=== PATIENT | female | born 1965 | race Caucasian/White ===

== ENCOUNTER 2016-08-13 20:07 | Emergency (ER) | payer SELFPAY ==
[~2016-08-13] VITALS: Ht 160 cm; Wt 50.0 kg
[~2016-08-13 20:07] MED LIST: DICL75TA PO; IBUP800T23 PO
[2016-08-13 20:08] VITALS: BP 124/76; PULSE 84; RESP 16; TEMP 98; O2SAT 96
--- NOTE | 2016-08-13 20:30 | PD ---
HPI Chief Complaint: Pain: Acute or Chronic Time Seen by Provider: 20:30 Travel History International Travel<30 days: No Contact w/Intl Traveler<30days: No Traveled to known affect area: No History of Present Illness HPI 51-year-old female presents to emergency department for evaluation left wrist pain 1 year. Patient states that she went to [facility] 2 months ago and they x-rayed it and gave her a wrist splint. She has not been wearing this has it is uncomfortable. 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 She reports the pain worse after work. She denies any injury. No alterations in sensation. She has not sought follow-up since her last hospital visit for this. She has no other symptoms to report. History Past Medical Histgory Hx Cancer: Yes (OVARIAN AND RIGHT BREAST) Social History Alcohol Use: Yes (RARE) Tobacco Use: Yes (1/2PPD) Allergies-Medications (Allergen,Severity, Reaction): Coded Allergies: Aspirin (Verified Allergy, Severe, QUIT BREATHING, 08/13/16) Flu Vaccine (Verified Allergy, Severe, Anaphylaxis, 08/13/16) Sodium Hypochlorite (Verified Allergy, Severe, HIVES/ QUIT BREATHING, 08/13) Latex (Verified Allergy, Intermediate, RASH, 08/13/16) Reported Meds & Prescriptions Reported Meds & Active Scripts Active Diclofenac Sodium DR (Diclofenac Sodium) 75 Mg Tabdr 75 Mg PO Q12HR PRN Reported Ibuprofen 800 Mg Tab 800 Mg PO TID PRN Review of Systems Except as stated in HPI: all other systems reviewed are Neg Physical Exam Narrative GENERAL: Well-nourished, well-developed female patient in no acute distress SKIN: Warm and dry. HEAD: Normocephalic. EYES: No scleral icterus. No injection or drainage. NECK: Supple, trachea midline. No JVD or lymphadenopathy. CARDIOVASCULAR: Regular rate and rhythm without murmurs, gallops, or rubs. RESPIRATORY: Breath sounds equal bilaterally. No accessory muscle use. GASTROINTESTINAL: Abdomen soft, non-tender, nondistended. MUSCULOSKELETAL: No cyanosis, or edema. There is no swelling and no reported tenderness of the left wrist. There is no obvious deformity. The skin is intact. Flexion and extension of the fingers is normal. The fingers are warm and well perfused. Sensation to light touch is intact in the hand. BACK: Nontender without obvious deformity. No CVA tenderness. Data Data Last Documented VS Vital Signs Date Time Temp Pulse Resp B/P Pulse Ox O2 Delivery O2 Flow Rate FiO2 08/13/16 20:08 98.0 84 16 124/76 96 MDM Medical Screen Exam Complete: Yes Emergency Medical Condition: No Differential Diagnosis Carpal tunnel versus tendinitis versus osteoarthritis Narrative Course 51-year-old female presents to the emergency department for evaluation a left wrist pain 1 year. Patient has been evaluated for this prior and has not sought follow-up. She continues to work, not using her brace, and is left- handed. This is likely a carpal tunnel or tendinitis. I advised that she wear her brace or at least an Adam wrap but most important she needs follow-up with hand specialist. At this time there are no urgent or emergent needs for medical intervention identified. A medical screening exam was performed: At the time of evaluation the presenting medical condition was determined not to be of an emergent nature. The patient was given the option of receiving additional care, but declined. Patient was given options for additional community resources from which to obtain care. The Patient Has Been advised to seek medical attention for their presenting complaint. The patient has been advised to return to the ER at any time if an emergent condition develops. Primary Impression: Encounter for medical screening examination Additional Impression: Left wrist pain Condition: Stable Kim Huang Aug 13, 2016 20:30
== END 2016-08-13 20:39 | disposition left against medical advice (07) ==
LOC: NEPB 20:07
DX: M25.532 Pain in left wrist (principal); F17.210 Nicotine dependence, cigarettes, uncomplicated
CPT/HCPCS: 99281

== ENCOUNTER 2017-07-30 18:51 | Observation (INO) | payer SELFPAY ==
[2017-07-30] VITALS (7 sets, daily range): BP systolic 106–153; BP diastolic 61–75; PULSE 65–82; RESP 16–19; TEMP 98.1–99; O2SAT 96–99
[~2017-07-30] VITALS: Ht 157.5 cm; Wt 50.0 kg
[~2017-07-30 18:51] MED LIST changes: +IBUP1TAB7 PO; -IBUP800T23 PO
[2017-07-30] MEDS ORDERED: SODIUM CHLOR 0.9% 1000 ML INJ 1,000 ML IV ONE (19:10)
[2017-07-30] MEDS ORDERED: SODIUM CHLORIDE 0.9% FLUSH 10 ML FLUSH IVF PRN (19:15)
[2017-07-30] MEDS ORDERED: ONDANSETRON HCL 4 MG/2 ML VIAL IV PUSH ONE (19:30)
[2017-07-30 19:46] LABS: AUTOMATED NEUTROPHIL # 2.7 TH/MM3 (1.8-7.7); BASOPHIL % 0.9 % (0.0-2.0); EOSINOPHIL # 0.1 TH/MM3 (0-0.4); HEMATOCRIT 40.3 % (35.0-46.0); HEMOGLOBIN 13.9 GM/DL (11.6-15.3); LYMPH % 40.2 % (9.0-44.0); LYMPHOCYTE # 2.1 TH/MM3 (1.0-4.8); MEAN CELL VOLUME 94.8 FL (80.0-100.0); MEAN CORPUSCULAR HEMOGLOBIN 32.6 PG (27.0-34.0); MEAN CORPUSCULAR HGB CONC 34.4 % (32.0-36.0); MEAN PLATELET VOLUME 8.2 FL (7.0-11.0); MONO % 6.4 % (0.0-8.0); MONOCYTE # 0.3 TH/MM3 (0-0.9); NEUT % 50.5 % (16.0-70.0); PLATELET COUNT 215 TH/MM3 (150-450); RED BLOOD COUNT 4.26 MIL/MM3 (4.00-5.30); RED CELL DISTRIBUTION WIDTH 13.3 % (11.6-17.2); WHITE BLOOD COUNT 5.3 TH/MM3 (4.0-11.0)
[2017-07-30 19:49] LABS: BILIRUBIN, URINE NEG (NEG); BLOOD, URINE SMALL (NEG); GLUCOSE,URINE NEG (NEG); KETONE, URINE NEG (NEG); MUCUS URINE FEW /lpf (OCC); NITRITE,URINE NEG (NEG); SQUAMOUS EPITHELIAL CELL URINE <1 /hpf (0-5); URINE COLOR YELLOW (YELLW/STRAW); URINE LEUKOCYTE ESTERASE NEG (NEG)
--- NOTE | 2017-07-30 20:04 | PD ---
HPI Chief Complaint: OD/ Ingestion Time Seen by Provider: 19:10 Travel History International Travel<30 days: No Contact w/Intl Traveler<30days: No Traveled to known affect area: No History of Present Illness HPI Patient is a 52-year-old female presented to the emergency department via EMS after her boyfriend called saying that she was unresponsive. When EMS arrived on scene patient was acting abnormally, she became combative. He boyfriend and patient adamantly denies any drug use. EMS stated that patient was tachycardic and significantly hypertensive on their initial assessment. Patient arrived in restraints, she is offering no history currently. History of present illness is limited to EMS report. PFSH Past Medical History Asthma: Yes Depression: Yes Cancer: Yes (OVARIAN AND RIGHT BREAST) Cardiovascular Problems: Yes (HEART MURMUR) Patient Takes Glucophage: No Diminished Hearing: No Musculoskeletal: Yes (CHRONIC BACK PAIN) Respiratory: Yes (COPD) Tetanus Vaccination: Unknown ?: Not Past Surgical History Genitourinary Surgery: Yes (BLADDER SLING) Hysterectomy: Yes Mastectomy: Yes Other Surgery: Yes (RIGHT BREAST CA) Social History Alcohol Use: Yes (RARE) Tobacco Use: Yes (1/2PPD) Substance Use: No Allergies-Medications (Allergen,Severity, Reaction): Coded Allergies: Influenza Virus Vaccines (Unverified Allergy, Severe, Anaphylaxis, 02/01/17 ) aspirin (Unverified Allergy, Severe, QUIT BREATHING, 02/01/17) sodium hypochlorite solution (Unverified Allergy, Severe, HIVES/ QUIT BREATHING, 02/01/17) latex (Unverified Allergy, Intermediate, RASH, 02/01/17) Reported Meds & Prescriptions Reported Meds & Active Scripts Active No Active Prescriptions or Reported Medications Review of Systems ROS Limitations: Altered Mental Status Except as stated in HPI: all other systems reviewed are Neg Neurologic: Positive: Change in Mentation Physical Exam Narrative GENERAL: Well-developed, well-nourished, lethargic female. Presenting in no acute distress. SKIN: Warm and dry. HEAD: Atraumatic. Normocephalic. EYES: Pupils equal and round. No scleral icterus. No injection or drainage. ENT: No nasal bleeding or discharge. Mucous membranes pink and moist. NECK: Trachea midline. No JVD. CARDIOVASCULAR: Regular rate and rhythm. RESPIRATORY: No accessory muscle use. Clear to auscultation. Breath sounds equal bilaterally. GASTROINTESTINAL: Abdomen soft, non-tender, nondistended. Hepatic and splenic margins not palpable. MUSCULOSKELETAL: Extremities without clubbing, cyanosis, or edema. No obvious deformities. NEUROLOGICAL: arouses to sternal rub. No obvious cranial nerve deficits. Motor grossly within normal limits. Five out of 5 muscle strength in the arms and legs. Normal speech. PSYCHIATRIC: Appropriate mood and affect; insight and judgment normal. Data Data Last Documented VS Vital Signs Date Time Temp Pulse Resp B/P (MAP) Pulse Ox O2 Delivery O2 Flow Rate FiO2 07/30/17 20:35 66 16 113/73 (86) 97 Room Air 07/30/17 19:05 99.0 Orders Orders Electrocardiogram (07/30/17:) Complete Blood Count With Diff (07/30/17:10) Comprehensive Metabolic Panel (07/30/17:10) Urinalysis - C+S If Indicated (07/30/17 19:10) Iv Access Insert/Monitor (07/30/17:10) Cath For Specimen (07/30/17:10) Ecg Monitoring (07/30/17:10) Oximetry (07/30/17 19:10) Sodium Chloride 0.9% Flush (Ns Flush) (07/30/17 19:15) Sodium Chlor 0.9% 1000 Ml Inj (Ns 1000 M (07/30/17 19:10) Restraints Non-Violent LAMBERT.Q3H (07/30/17 19:10) Drug Screen, Random Urine (07/30/17 19:10) Alcohol (Ethanol) (07/30/17 19:10) Salicylates (Aspirin) (07/30/17 19:10) Tylenol (Acetaminophen) (07/30/17 19:10) Ondansetron Inj (Zofran Inj) (07/30/17 19:30) Ct Brain W/O Iv Contrast(Rout) (07/30/17 ) Chest, Single Ap (07/30/17 ) Ckmb (Isoenzyme) Profile (07/30/17 19:15) Troponin I (07/30/17 19:15) CKMB (07/30/17 19:15) CKMB% (07/30/17 19:15) Admit Order (Ed Use Only) (07/30/17 21:39) Labs Laboratory Tests Test 07/30/17 19:15 White Blood Count 5.3 TH/MM3 Red Blood Count 4.26 MIL/MM3 Hemoglobin 13.9 GM/DL Hematocrit 40.3 % Mean Corpuscular Volume 94.8 FL Mean Corpuscular Hemoglobin 32.6 PG Mean Corpuscular Hemoglobin Concent 34.4 % Red Cell Distribution Width 13.3 % Platelet Count 215 TH/MM3 Mean Platelet Volume 8.2 FL Neutrophils (%) (Auto) 50.5 % Lymphocytes (%) (Auto) 40.2 % Monocytes (%) (Auto) 6.4 % Eosinophils (%) (Auto) 2.0 % Basophils (%) (Auto) 0.9 % Neutrophils # (Auto) 2.7 TH/MM3 Lymphocytes # (Auto) 2.1 TH/MM3 Monocytes # (Auto) 0.3 TH/MM3 Eosinophils # (Auto) 0.1 TH/MM3 Basophils # (Auto) 0.0 TH/MM3 CBC Comment DIFF FINAL Differential Comment Urine Color YELLOW Urine Turbidity CLEAR Urine pH 5.0 Urine Specific [place] 1.026 Urine Protein TRACE mg/dL Urine Glucose (UA) NEG mg/dL Urine Ketones NEG mg/dL Urine Occult Blood SMALL Urine Nitrite NEG Urine Bilirubin NEG Urine Urobilinogen LESS THAN 2.0 MG/DL Urine Leukocyte Esterase NEG Urine RBC 2 /hpf Urine WBC 1 /hpf Urine Squamous Epithelial Cells <1 /hpf Urine Mucus FEW /lpf Microscopic Urinalysis Comment CULT NOT INDICATED Blood Urea Nitrogen 13 MG/DL Creatinine 0.97 MG/DL Random Glucose 96 MG/DL Total Protein 7.4 GM/DL Albumin 3.9 GM/DL Calcium Level 8.8 MG/DL Alkaline Phosphatase 75 U/L Aspartate Amino Transf (AST/SGOT) 18 U/L Alanine Aminotransferase (ALT/SGPT) 20 U/L Total Bilirubin 0.3 MG/DL Sodium Level 140 MEQ/L Potassium Level 3.4 MEQ/L Chloride Level 106 MEQ/L Carbon Dioxide Level 26.1 MEQ/L Anion Gap 8 MEQ/L Estimat Glomerular Filtration Rate 60 ML/MIN Total Creatine Kinase 206 U/L Salicylates Level 4.5 MG/DL Urine Opiates Screen NEG Acetaminophen Level LESS THAN 2.0 MCG/ML Urine Barbiturates Screen NEG Urine Amphetamines Screen NEG Urine Benzodiazepines Screen NEG Urine Cocaine Screen NEG Urine Cannabinoids Screen POS Ethyl Alcohol Level 3 MG/DL MDM Medical Decision Making Medical Screen Exam Complete: Yes Emergency Medical Condition: Yes Medical Record Reviewed: Yes Interpretation(s) Vital Signs Date Time Temp Pulse Resp B/P (MAP) Pulse Ox O2 Delivery O2 Flow Rate FiO2 07/30/17 19:51 72 17 120/75 (90) 99 Room Air 07/30/17 19:41 97 Room Air 07/30/17 19:05 99.0 82 19 153/70 (97) 97 Differential Diagnosis Substance abuse versus intoxication versus metabolic abnormality versus less likely CVA versus other Narrative Course Patient is a 52-year-old female presenting to the emergency department for evaluation of altered mental status. On arrival patient was lethargic and would only respond to sternal rub. Her vital signs are stable, labs and imaging ordered and pending. drug screen is positive for marijuana CBC with no acute abnormalities Urinalysis is unremarkable Head CT is negative Chest x-ray shows no acute disease Patient's shawnee presented to the emergency department. A more thorough H&P was obtained. He states that she was sitting playing a game on her phone when he heard the phone drop and she was on the floor shaking and stiff like, he states that her eyes rolled back and her head and she was not responding. This lasted for a few minutes and then she relaxed but she continued to be unresponsive and was gasping for air and her eyes continued to fall back in her head. He then called 911 and patient was brought to the emergency department. Patient has no history of seizure disorder, she is positive for marijuana and state that they get their marijuana from the same person they normally do and there is no chance of it being laced. She reports a remote history of ovarian cancer status post partial hysterectomy. She states that she's been having migraines for the last few weeks on a daily basis, they cause her to feel dizzy. She denies any nausea or vomiting or diarrhea before today. She reports that she been feeling well otherwise. Discussed findings with Dr. Nolan, she accepted admission admit orders placed for observation. Symptomology and H&P is consistent with new onset seizures. Diagnosis Primary Impression: New onset seizure Admitting Information Admitting Physician Requests: Observation Scripts No Active Prescriptions or Reported Meds Condition: Stable Anjali Shaffer Jul 30, 2017 20:04
[2017-07-30 20:12] LABS: ALBUMIN 3.9 GM/DL (3.4-5.0); AST (GOT) 18 U/L (15-37); BICARBONATE 26.1 MEQ/L (21.0-32.0); BLOOD UREA NITROGEN 13 MG/DL (7-18); CALCIUM 8.8 MG/DL (8.5-10.1); CHLORIDE 106 MEQ/L (98-107); CREATININE 0.97 MG/DL (0.50-1.00); GLOMERULAR FILTRATION RATE 60 ML/MIN (>89); GLUCOSE,RANDOM 96 MG/DL (74-106); SODIUM (NA) 140 MEQ/L (136-145)
[2017-07-30 20:13] LABS: ALT (GPT) 20 U/L (10-53)
[2017-07-30 20:15] LABS: ALKALINE PHOSPHATASE 75 U/L (45-117); TOTAL BILIRUBIN ADULT 0.3 MG/DL (0.2-1.0); TOTAL PROTEIN 7.4 GM/DL (6.4-8.2)
[2017-07-30 20:21] LABS: ACETAMINOPHEN LESS THAN 2.0 MCG/ML (10.0-30.0)
--- NOTE | 2017-07-30 20:34 | RADRPT ---
EXAM DATE/TIME: 07/30/2017 20:06 [facility] COMPARISON: No previous studies available for comparison. INDICATIONS : Shortness of breath. Vomiting; Overdose. MEDICAL HISTORY : Unknown. SURGICAL HISTORY : Unknown. ENCOUNTER: Initial ACUITY: 1 day PAIN SCORE: 0/10 LOCATION: Bilateral chest FINDINGS: A single view of the chest demonstrates the lungs to be symmetrically aerated without evidence of mas s, infiltrate or effusion. The cardiomediastinal contours are unremarkable. Osseous structures are intact. CONCLUSION: The lungs are clear. David Gonzalez MD on July 30, 2017 at 20:32 Board Certified Radiologist. This report was verified electronically.
--- NOTE | 2017-07-30 20:45 | RADRPT ---
EXAM DATE/TIME: 07/30/2017 20:24 [facility] COMPARISON: No previous studies available for comparison. INDICATIONS : Altered mental status; cephalgia. RADIATION DOSE: 34.94 CTDIvol (mGy) MEDICAL HISTORY : Cardiovascular disease. Carcinoma, not otherwise specified. SURGICAL HISTORY : Mastectomy, bilateral. Hysterectomy. ENCOUNTER: Initial ACUITY: 1 day PAIN SCALE: 8/10 LOCATION: cranial TECHNIQUE: Multiple contiguous axial images were obtained of the head. Using automated exposure control and adj ustment of the mA and/or kV according to patient size, radiation dose was kept as low as reasonably a chievable to obtain optimal diagnostic quality images. DICOM format image data is available electro nically for review and comparison. FINDINGS: CEREBRUM: The ventricles are normal for age. No evidence of midline shift, mass lesion, hemorrhage or acute in farction. No extra-axial fluid collections are seen. POSTERIOR FOSSA: The cerebellum and brainstem are intact. The 4th ventricle is midline. The cerebellopontine angle i s unremarkable. EXTRACRANIAL: The visualized portion of the orbits is intact. SKULL: The calvaria is intact. No evidence of skull fracture. CONCLUSION: Negative noncontrast CT brain. David Gonzalez MD on July 30, 2017 at 20:42 Board Certified Radiologist. This report was verified electronically.
[2017-07-30 21:42] LABS: TROPONIN I LESS THAN 0.02 NG/ML (0.02-0.05)
[2017-07-30] MEDS ORDERED: LORazepam 2 MG/ML VIAL IV PUSH PRN (21:45)
[2017-07-30] MEDS ORDERED: SODIUM CHLORIDE 0.9% FLUSH 10 ML FLUSH IV FLUSH PRN (21:45)
[2017-07-30] MEDS ORDERED: LACTULOSE SYRUP 20 GM/30 ML CUP PO PRN (21:45)
[2017-07-30] MEDS ORDERED: ACETAMINOPHEN/HYDROcodone 325 MG/10 MG TAB PO PRN (21:45)
[2017-07-30] MEDS ORDERED: BISACODYL 10 MG SUPP RECTAL PRN (21:45)
[2017-07-30] MEDS ORDERED: ACETAMINOPHEN/HYDROcodone 325 MG/5 MG TAB PO PRN (21:45)
[2017-07-30] MEDS ORDERED: ACETAMINOPHEN 325 MG TAB PO PRN (21:45)
[2017-07-30] MEDS ORDERED: SENNOSIDES 8.6 MG TAB PO PRN (21:45)
[2017-07-30] MEDS ORDERED: ONDANSETRON HCL 4 MG/2 ML VIAL IVP PRN (21:45)
[2017-07-30] MEDS ORDERED: MAGNESIUM HYDROXIDE SUSP 30 ML CUP PO PRN (21:45)
--- NOTE | 2017-07-30 21:46 | HHI.HP ---
[facility] Admission Diagnosis NEW ONSET SEIZURE Diagnoses: (1) New onset seizure Diagnosis: Principal (2) Dehydration Diagnosis: Principal (3) Tobacco abuse Diagnosis: Principal (4) Hand pain, left Diagnosis: Principal Travel History International Travel<30 Days: No Contact w/Intl Traveler <30 Da: No Traveled to Known Affected Are: No History of Present Illness This is a 52-year-old female with no a PMH of Anxiety, Depression, COPD and Tobacco Abuse was brought to the ER by EMS secondary to AMS and possible seizure activity. Boyfriend at bedside, states they had dinner this evening and went for a walk, when they got back to the house pt was playing a game on her phone when he hear her cell phone drop. States he saw her on the floor in position with "all her muscles tightened up", completely unresponsive. Upon EMS arrival, pt noted to be very combative/agitated, requiring restraints on arrival to ER. At this time, pt w/ mental status back to baseline. Pleasant , cooperative. Denies h/o drug use, no medication changes, no recent fever/ chills. Per pt, had fall approx 2wks ago w/ head trauma and injury to left wrist, no LOC. Notes Migraine headaches since that time, mostly frontal, associated w/ nausea and photophobia. No previous h/o migraine prior to head trauma. C/o persistent left hand pain, severe, constant, 8/10, worse w/ movement. On arrival, BP 153/70, HR 82, O2 sat 97% on RA, Temp 99.0. CBC unremarkable. Chemistry essentially unremarkable positive for GFR 60. CPK 206. Troponin negative. Urine Drug Screen positive for THC. Alcohol negative. UA negative. CXR no acute findings. CT Head negative. Review of Systems Except as stated in HPI: all other systems reviewed are Neg ROS: 14 point review of systems otherwise negative. Past Family Social History Past Medical History PMH: Anxiety, Depression, COPD and Tobacco Abuse Past Surgical History PAST SURGICAL HISTORY: Bladder Sling, Hysterectomy, Mastectomy Allergies: Coded Allergies: Influenza Virus Vaccines (Unverified Allergy, Severe, Anaphylaxis, 02/01/17 ) aspirin (Unverified Allergy, Severe, QUIT BREATHING, 02/01/17) sodium hypochlorite solution (Unverified Allergy, Severe, HIVES/ QUIT BREATHING, 02/01/17) latex (Unverified Allergy, Intermediate, RASH, 02/01/17) Family History PAST FAMILY HISTORY: Reviewed. No h/o DM or CAD Social History PAST SOCIAL HISTORY: Occasional alcohol. Smokes 1/2ppd. +Marijuana. Physical Exam Vital Signs Vital Signs Date Time Temp Pulse Resp B/P (MAP) Pulse Ox O2 Delivery O2 Flow Rate FiO2 07/30/17 20:35 66 16 113/73 (86) 97 Room Air 07/30/17 20:17 65 16 110/67 (81) 98 Room Air 07/30/17 19:51 72 17 120/75 (90) 99 Room Air 07/30/17 19:41 97 Room Air 07/30/17 19:05 99.0 82 19 153/70 (97) 97 Physical Exam PE: GENERAL: Pleasant middle-aged white female in no acute distress. Boyfriend at bedside. HEENT: PERRLA, EOMI. No scleral icterus or conjunctival pallor. No lid lag or facial droop. CARDIOVASCULAR: Regular rate and rhythm. No obvious murmurs to auscultation. No chest tenderness to palpation. RESPIRATORY: No obvious rhonchi or wheezing. Clear to auscultation. Breath sounds equal bilaterally. GASTROINTESTINAL: Abdomen soft, non-tender, nondistended. BS normal. MUSCULOSKELETAL: Extremities without clubbing, cyanosis, or edema. No obvious deformities. NEUROLOGICAL: Awake, alert and oriented x4. No focal neurologic deficits. Moving both upper and lower extremities spontaneously. Laboratory Laboratory Tests Test 07/30/17 19:15 White Blood Count 5.3 Red Blood Count 4.26 Hemoglobin 13.9 Hematocrit 40.3 Mean Corpuscular Volume 94.8 Mean Corpuscular Hemoglobin 32.6 Mean Corpuscular Hemoglobin Concent 34.4 Red Cell Distribution Width 13.3 Platelet Count 215 Mean Platelet Volume 8.2 Neutrophils (%) (Auto) 50.5 Lymphocytes (%) (Auto) 40.2 Monocytes (%) (Auto) 6.4 Eosinophils (%) (Auto) 2.0 Basophils (%) (Auto) 0.9 Neutrophils # (Auto) 2.7 Lymphocytes # (Auto) 2.1 Monocytes # (Auto) 0.3 Eosinophils # (Auto) 0.1 Basophils # (Auto) 0.0 CBC Comment DIFF FINAL Differential Comment Urine Color YELLOW Urine Turbidity CLEAR Urine pH 5.0 Urine Specific [place] 1.026 Urine Protein TRACE Urine Glucose (UA) NEG Urine Ketones NEG Urine Occult Blood SMALL Urine Nitrite NEG Urine Bilirubin NEG Urine Urobilinogen LESS THAN 2.0 Urine Leukocyte Esterase NEG Urine RBC 2 Urine WBC 1 Urine Squamous Epithelial Cells <1 Urine Mucus FEW Microscopic Urinalysis Comment CULT NOT INDICATED Blood Urea Nitrogen 13 Creatinine 0.97 Random Glucose 96 Total Protein 7.4 Albumin 3.9 Calcium Level 8.8 Alkaline Phosphatase 75 Aspartate Amino Transf (AST/SGOT) 18 Alanine Aminotransferase (ALT/SGPT) 20 Total Bilirubin 0.3 Sodium Level 140 Potassium Level 3.4 Chloride Level 106 Carbon Dioxide Level 26.1 Anion Gap 8 Estimat Glomerular Filtration Rate 60 Total Creatine Kinase 206 Troponin I LESS THAN 0.02 Salicylates Level 4.5 Urine Opiates Screen NEG Acetaminophen Level LESS THAN 2.0 Urine Barbiturates Screen NEG Urine Amphetamines Screen NEG Urine Benzodiazepines Screen NEG Urine Cocaine Screen NEG Urine Cannabinoids Screen POS Ethyl Alcohol Level 3 Result Diagram: 07/30/17191407/30/171914 Caprini VTE Risk Assessment Caprini VTE Risk Assessment: No/Low Risk (score <= 1) Caprini Risk Assessment Model Point Value = 1 Point Value = 2 Point Value = 3 Point Value = 5 Age 41-60 Minor surgery BMI > 25 kg/m2 Swollen legs Varicose veins or History of unexplained or recurrent spontaneous Oral contraceptives or hormone replacement Sepsis (< 1 month) Serious lung disease, including pneumonia (< 1 month) Abnormal pulmonary function Acute myocardial infarction Congestive heart failure (< 1 month) History of inflammatory bowel disease Medical patient at bed rest Age 61-74 Arthroscopic surgery Major open surgery (> 45 min) Laparoscopic surgery (> 45 min) Malignancy Confined to bed (> 72 hours) Immobilizing plaster cast Central venous access Age >= 75 History of VTE Family history of VTE Factor V Leiden Prothrombin [id number] Lupus anticoagulant Anticardiolipin antibodies Elevated serum homocysteine Heparin-induced thrombocytopenia Other congenital or acquired thrombophilia Stroke (< 1 month) Elective arthroplasty Hip, pelvis, or leg fracture Acute spinal cord injury (< 1 month) Prophylaxis Regimen Total Risk Factor Score Risk Level Prophylaxis Regimen 0-1 Low Early ambulation 2 Moderate Order ONE of the following: *Sequential Compression Device (SCD) *Heparin 5000 units SQ BID 3-4 Higher Order ONE of the following medications: *Heparin 5000 units SQ TID *Enoxaparin/Lovenox 40 mg SQ daily (WT < 150 kg, CrCl > 30 mL/min) *Enoxaparin/Lovenox 30 mg SQ daily (WT < 150 kg, CrCl > 10-29 mL/min) *Enoxaparin/Lovenox 30 mg SQ BID (WT < 150 kg, CrCl > 30 mL/min) AND/OR *Sequential Compression Device (SCD) 5 or more Highest Order ONE of the following medications: *Heparin 5000 units SQ TID (Preferred with Epidurals) *Enoxaparin/Lovenox 40 mg SQ daily (WT < 150 kg, CrCl > 30 mL/min) *Enoxaparin/Lovenox 30 mg SQ daily (WT < 150 kg, CrCl > 10-29 mL/min) *Enoxaparin/Lovenox 30 mg SQ BID (WT < 150 kg, CrCl > 30 mL/min) AND *Sequential Compression Device (SCD) Assessment and Plan Problem List: (1) New onset seizure ICD Code: R56.9 - Unspecified convulsions Status: Acute (2) Dehydration ICD Code: E86.0 - Dehydration (3) Hand pain, left ICD Code: M79.642 - Pain in left hand (4) Tobacco abuse ICD Code: Z72.0 - Tobacco use Assessment and Plan A/P: 1. New Onset Seizure: episode of what appears to be seizure activity, followed by episode of agitation/combativeness, now back to baseline. Reports recent fall w/ head trauma and Migraine headaches, possibly underlying etiology. CT Head w/ no acute findings, images reviewed by me. Admit for Observation, Seizure Precautions, Ativan prn for seizure, Check MRI to eval for underlying lesion/mass of focus of seizure. Check EEG to eval for seizure activity. 2. Dehydration: GFR 60. CPK 206. UA negative for UTI. IVF for hydration, repeat labs in am. 3. Left Hand Pain: c/o left hand pain after fall w/ injury 2wks ago, analgesics/antiemetics as needed. Obtain Hand x-ray. 4. Tobacco Abuse: Pt counselled. Ativan prn if needed. 5. DVT Prophylaxis: SCD/teds. 6. lock up worker for DC planning as needed. 7. Case discussed at length with ER physician, lab/records/imaging reviewed by me. Alexus Fairchild MD Jul 30, 2017 21:46
[2017-07-30] MEDS ORDERED: MORPHINE SULFATE 2 MG/ML INJ IV PUSH ONE (22:00)
[2017-07-30] MEDS: SODIUM CHLOR 0.9% 1000 ML INJ 1,000 ML IV SCH (22:01)
--- NOTE | 2017-07-31 00:28 | RADRPT ---
EXAM DATE/TIME: 07/30/2017 23:44 [facility] COMPARISON: HAND LEFT COMPLETE ([id number]), May 07, 2016, 15:41. INDICATIONS : Pt fell onto left hand New Years. MEDICAL HISTORY : None. SURGICAL HISTORY : None. ENCOUNTER: Initial ACUITY: 1 month PAIN SCORE: 6/10 LOCATION: Left Hand FINDINGS: Three view examination of the left hand demonstrates no soft tissue swelling, dislocation, or fractur e. The carpal bones appear intact. The interphalangeal and metacarpophalangeal joints are intact. Bony mineralization is normal. CONCLUSION: 1. No acute findings. 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 Case Seymour MD on July 31, 2017 at 0:25 Board Certified Radiologist. This report was verified electronically.
[2017-07-31 04:30] VITALS: BP 110/65; PULSE 68; RESP 17; TEMP 97.9; O2SAT 97
[2017-07-31 07:04] LABS: AUTOMATED NEUTROPHIL # 3.7 TH/MM3 (1.8-7.7); BASOPHIL # 0.1 TH/MM3 (0-0.2); BASOPHIL % 1.1 % (0.0-2.0); EOSINOPHIL # 0.1 TH/MM3 (0-0.4); EOSINOPHIL % 1.3 % (0.0-4.0); HEMATOCRIT 36.1 % (35.0-46.0); HEMOGLOBIN 12.4 GM/DL (11.6-15.3); LYMPH % 29.7 % (9.0-44.0); LYMPHOCYTE # 1.8 TH/MM3 (1.0-4.8); MEAN CELL VOLUME 95.5 FL (80.0-100.0); MEAN CORPUSCULAR HEMOGLOBIN 32.8 PG (27.0-34.0); MEAN CORPUSCULAR HGB CONC 34.3 % (32.0-36.0); MEAN PLATELET VOLUME 8.4 FL (7.0-11.0); MONO % 8.5 % (0.0-8.0); MONOCYTE # 0.5 TH/MM3 (0-0.9); NEUT % 59.4 % (16.0-70.0); PLATELET COUNT 167 TH/MM3 (150-450); RED BLOOD COUNT 3.78 MIL/MM3 (4.00-5.30); RED CELL DISTRIBUTION WIDTH 13.4 % (11.6-17.2); WHITE BLOOD COUNT 6.2 TH/MM3 (4.0-11.0)
[2017-07-31 07:36] LABS: ALBUMIN 3.1 GM/DL (3.4-5.0); ALKALINE PHOSPHATASE 62 U/L (45-117); ALT (GPT) 35 U/L (10-53); AST (GOT) 38 U/L (15-37); BICARBONATE 25.8 MEQ/L (21.0-32.0); BLOOD UREA NITROGEN 11 MG/DL (7-18); CALCIUM 7.5 MG/DL (8.5-10.1); CHLORIDE 110 MEQ/L (98-107); CREATININE 0.75 MG/DL (0.50-1.00); GLOMERULAR FILTRATION RATE 81 ML/MIN (>89); GLUCOSE,RANDOM 99 MG/DL (74-106); SODIUM (NA) 143 MEQ/L (136-145); TOTAL BILIRUBIN ADULT 0.4 MG/DL (0.2-1.0); TOTAL PROTEIN 5.8 GM/DL (6.4-8.2)
[2017-07-31] MEDS: SODIUM CHLOR 0.9% 1000 ML INJ 1,000 ML IV SCH ×2 (07:43→18:42)
[2017-07-31] MEDS ORDERED: GADODIAMIDE PF 287 MG/ML 20 ML VIAL (for RAD MRI) IVCONTRAST ONE (08:15)
[2017-07-31 08:41] VITALS: BP 113/70; PULSE 51; RESP 18; TEMP 98.7; O2SAT 99
--- NOTE | 2017-07-31 08:48 | RADRPT ---
EXAM DATE/TIME: 07/31/2017 08:08 [place] COMPARISON: CT BRAIN W/O CONTRAST, July 30, 2017, 20:24. INDICATIONS : Seizures. Migraine headaches. CONTRAST: 12 cc Omniscan (gadodiamide) IV MEDICAL HISTORY : Carcinoma, ovarian. SURGICAL HISTORY : Hysterectomy. ENCOUNTER: Initial ACUITY: 2 day PAIN SCORE: 0/10 LOCATION: cranial TECHNIQUE: Multiplanar, multisequence MRI of the brain was performed both prior to and following the administrat ion of paramagnetic contrast. FINDINGS: CEREBRUM: The ventricles are normal for age. No evidence of midline shift, mass lesion, hemorrhage or acute in farction. No extraaxial fluid collections are seen. The pituitary gland and suprasellar cistern are normal in configuration. WHITE MATTER: No significant signal abnormalities are seen in the white matter. POSTERIOR FOSSA: The cerebellum and brainstem are intact. The 4th ventricle is midline. The cerebellopontine angle is unremarkable. The cerebellar tonsils are normal in position. DIFFUSION IMAGING: No focal areas of restricted diffusion are seen. No evidence of acute infarction. EXTRACRANIAL: The visualized portions of the orbits and paranasal sinuses are unremarkable. POST-CONTRAST: No abnormal areas of parenchymal or dural enhancement. No evidence of blood-brain barrier breakdown. CONCLUSION: Normal examination. Virgen Feldman MD on July 31, 2017 at 8:42 Board Certified Radiologist. This report was verified electronically.
[2017-07-31] MEDS: SODIUM CHLORIDE 0.9% FLUSH 10 ML FLUSH IV FLUSH SCH ×2 (09:00→21:00)
[2017-07-31] MEDS: DOCUSATE SODIUM 50 MG/SENNA 8.6 MG TAB PO SCH ×2 (09:00→23:00)
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
[2017-07-31 11:33] VITALS: BP 99/56; PULSE 57; RESP 18; TEMP 98; O2SAT 98
[2017-07-31] MEDS: TOPIRAMATE 25 MG TAB PO SCH ×2 (12:22→23:00)
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
[2017-07-31 16:37] VITALS: BP 114/56; PULSE 56; RESP 18; TEMP 98.1; O2SAT 97
--- NOTE | 2017-07-31 17:18 | EKG ---
Date Performed: 07/30/2017 Time Performed: 20:48:20 PTAGE: 52 years EKG: Sinus rhythm POSSIBLE RIGHT VENTRICULAR CONDUCTION DELAY BORDERLINE ECG NO PREVIOUS TRACING DOCTOR: Fabian Medrano Interpretating Date/Time 07/31/2017 17:18:00
--- NOTE | 2017-07-31 20:44 | MG ---
cc: LUIS MANUEL CRAWFORD M.D. Lab No: Date: 07/31/2017 Age: Sex: F Race: DATE OF 1965, 52 EEG NUMBER [id number] ROOM H86 With photic stimulation. Awake, drowsy asleep study. Study CT is negative. A 52-year-old woman found in the position possibly having seizures. History of asthma, depression, anxiety and some marijuana use. DESCRIPTION OF RECORD The patient has a background alpha of 10 Hz, 20-40 microvolts. Seem to be some sharp waves bilaterally in the recording. Photic stimulation performed at the beginning portion of the recording. There is a driving response. There is a phase reversal seen at as well as and epoch 51. IMPRESSION Abnormal EEG due to some sharp waves and phase reversal seen in the recording concerning for epileptic potential in this patient. She has a history also of severe headache so topiramate was initiated at 25 mg b.i.d. for a week with the goal to increase to 50 mg b.i.d. thereafter and adjustments accordingly. Clinical correlation. MD CORIE Juan/CLARA /7:41 PM /8:29 PM
[2017-07-31 20:49] VITALS: BP 119/55; PULSE 50; RESP 18; TEMP 97.4; O2SAT 97
[2017-07-31 23:34] VITALS: BP 120/60; PULSE 49; RESP 18; TEMP 97.6; O2SAT 97
[2017-08-01] MEDS: SODIUM CHLOR 0.9% 1000 ML INJ 1,000 ML IV SCH (03:06)
[2017-08-01 03:38] VITALS: BP 124/69; PULSE 52; RESP 16; TEMP 97.7; O2SAT 97
[2017-08-01 07:22] VITALS: BP 125/67; PULSE 52; RESP 20; TEMP 98.9; O2SAT 97
[2017-08-01] MEDS ORDERED: TOPI25 PO (07:34)
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
[2017-08-01] MEDS: TOPIRAMATE 25 MG TAB PO SCH (08:20)
[2017-08-01] MEDS: DOCUSATE SODIUM 50 MG/SENNA 8.6 MG TAB PO SCH (08:21)
[2017-08-01] MEDS: SODIUM CHLORIDE 0.9% FLUSH 10 ML FLUSH IV FLUSH SCH (08:21)
--- NOTE | 2017-08-01 09:21 | HHI.PR ---
Subjective Remarks Follow up for migraine, seizure. The patient reports feeling much better today. She states her migraine is almost completely resolved. Denies any photophobia or nausea. Denies any further seizure activity overnight. She wants to go home. She is requesting assistance with obtaining her new Topamax prescription. Discussed no driving and other seizure precautions, patient verbalized understanding, states she doesn't even have a car to drive. She has no other medical complaints at this time. Objective Vitals Vital Signs Date Time Temp Pulse Resp B/P (MAP) Pulse Ox O2 Delivery O2 Flow Rate FiO2 08/01/17 07:22 98.9 52 20 125/67 (86) 97 08/01/17 03:38 97.7 52 16 124/69 (87) 97 07/31/17 23:34 97.6 49 18 120/60 (80) 97 07/31/17 20:49 97.4 50 18 119/55 (76) 97 07/31/17 16:37 98.1 56 18 114/56 (75) 97 07/31/17 11:33 98.0 57 18 99/56 (70) 98 07/31/17 10:17 18 I/O 07/31/17 07/31/17 07/31/17 08/01/17 08/01/17 08/01/17 07:00 15:00 23:00 07:00 15:00 23:00 Intake Total 1591 ml Balance 1591 ml Intake Oral 591 ml IV Total 1000 ml # Voids 4 1 Result Diagram: 07/31/17 0600 07/31/17 0600 Imaging Last Impressions Brain MRI 07/31/17 0000 Signed Impressions: Service Date/Time: Monday, July 31, 2017 08:08 - CONCLUSION: Normal examination. Virgen Feldman MD Head CT 07/30/17 0000 Signed Impressions: Service Date/Time: Sunday, July 30, 2017 20:24 - CONCLUSION: Negative noncontrast CT brain. David Gonzalez MD Hand X-Ray 07/30/17 0000 Signed Impressions: Service Date/Time: Sunday, July 30, 2017 23:44 - CONCLUSION: 1. No acute findings. 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 Case Seymour MD Chest X-Ray 07/30/17 0000 Signed Impressions: Service Date/Time: Sunday, July 30, 2017 20:06 - CONCLUSION: The lungs are clear. David Gonzalez MD Objective Remarks GENERAL: Well-nourished, well-developed middle aged female patient in [facility]. SKIN: Warm and dry. No rash. HEENT: Normocephalic. Atraumatic. Pupils equal and round. Mucous membranes pink and moist. NECK: Supple. Trachea midline. CARDIOVASCULAR: Regular rate and rhythm. S1, S2 noted. No murmur appreciated. RESPIRATORY: No accessory muscle use. Clear to auscultation. Breath sounds equal bilaterally. GASTROINTESTINAL: Abdomen soft, non-tender, nondistended. Normoactive bowel sounds x4. MUSCULOSKELETAL: No obvious deformities. Extremities without clubbing, cyanosis , or edema. NEUROLOGICAL: Awake and alert. No obvious cranial nerve deficits. Motor grossly within normal limits. Normal speech. PSYCHIATRIC: Appropriate mood and affect; insight and judgment normal. Medications and IVs Current Medications Medications (Trade) Dose Ordered Sig/Martin Route Start Time Stop Time Status Last Admin (NS Flush) 2 ml UNSCH PRN IVF 07/30/17 19:15 (Ativan Inj) 1 mg Q5M PRN IV PUSH 07/30/17 21:45 Sodium Chloride 1,000 ml @ 100 mls/hr Q10H IV 07/30/17 21:43 08/01/17 03:06 (NS Flush) 2 ml UNSCH PRN IV FLUSH 07/30/17 21:45 (NS Flush) 2 ml BID IV FLUSH 07/31/17 09:00 (Zofran Inj) 4 mg Q6H PRN IVP 07/30/17 21:45 (Tylenol) 650 mg Q6H PRN PO 07/30/17 21:45 ([place] 5-325 Mg) 1 tab Q4H PRN PO 07/30/17 21:45 ([place] 10-325 Mg) 1 tab Q4H PRN PO 07/30/17 21:45 07/31/17 09:15 (Riana-Colace) 1 tab BID PO 07/31/17 09:00 07/31/17 23:00 (Milk Of Magnesia Liq) 30 ml Q12H PRN PO 07/30/17 21:45 (Senokot) 17.2 mg Q12H PRN PO 07/30/17 21:45 (Dulcolax Supp) 10 mg DAILY PRN RECTAL 07/30/17 21:45 (Lactulose Liq) 30 ml DAILY PRN PO 07/30/17 21:45 (Topamax) 25 mg Q12HR PO 07/31/17 12:00 08/01/17 08:20 A/P Problem List: (1) New onset seizure ICD Code: R56.9 - Unspecified convulsions Status: Acute (2) Dehydration ICD Code: E86.0 - Dehydration (3) Hand pain, left ICD Code: M79.642 - Pain in left hand (4) Tobacco abuse ICD Code: Z72.0 - Tobacco use Assessment and Plan 52-year-old female with no a PMH of Anxiety, Depression, COPD and Tobacco Abuse was brought to the ER by EMS secondary to AMS and possible seizure activity. New Onset Seizure: episode of what appears to be seizure activity, followed by episode of agitation/combativeness, now back to baseline. Reports recent fall w / head trauma and migraine headaches, possibly underlying etiology. -CT Head w/ no acute findings, images reviewed by me. -Brain MRI images reviewed, no acute findings -EEG abnormal with some sharp waves and phase reversal concerning for epileptic potential -Seizure Precautions, Neuro Checks -IV Ativan prn for seizure -Consult Neurology, started patient on Topamax 25mg bid x1 week then 50mg bid. -Migraine improved and no further seizure activity, stable for discharge -Case management assisted with filling prescription for Topamax prior to discharge -Patient counseled on seizure precautions, no driving Dehydration: GFR 60. CPK 206. UA negative for UTI. -Continue IVF for hydration -Repeat labs show improvement -Resolved Left Hand Pain: c/o left hand pain after fall w/ injury 2wks ago -Hand Xray with osteoarthritis, otherwise no acute findings -Continue analgesics/antiemetics as needed. -Pain improved Tobacco Abuse: Smokes tobacco 1/2 PPD -Patient counseled on cessation -Ativan prn if needed. DVT Prophylaxis: SCD/teds. Discharge Planning Discharge patient to home Condition on discharge: Improved Regular Diet as tolerated Ad Elissa activity, no driving, seizure precautions Rx written: Topamax 25mg bid x1 week, then 50mg bid Follow-up with primary care physician and neurology Dr. Helton within 1 week Alissa Watts PA-C Aug 01, 2017 9:21 am
== END 2017-08-01 10:26 | disposition home or self-care (01) ==
LOC: NEPD 18:51 → NEDA 21:40 → NEPHCDU 22:44
PROVIDERS: ADMIT Internal Medicine; ATTEND Internal Medicine
DX: R56.9 Unspecified convulsions (principal); E86.0 Dehydration; F17.210 Nicotine dependence, cigarettes, uncomplicated; M79.642 Pain in left hand; F41.9 Anxiety disorder, unspecified; F32.9 Major depressive disorder, single episode, unspecified; J44.9 Chronic obstructive pulmonary disease, unspecified; Z78.1 Physical restraint status; G43.909 Migraine, unspecified, not intractable, without status migrainosus; F12.90 Cannabis use, unspecified, uncomplicated; S09.90XA Unspecified injury of head, initial encounter; Z85.43 Personal history of malignant neoplasm of ovary; M19.90 Unspecified osteoarthritis, unspecified site; R00.0 Tachycardia, unspecified; R01.1 Cardiac murmur, unspecified; M54.9 Dorsalgia, unspecified; G89.29 Other chronic pain; R11.0 Nausea; H53.149 Visual discomfort, unspecified; R94.31 Abnormal electrocardiogram [ECG] [EKG]; R94.01 Abnormal electroencephalogram [EEG]
CPT/HCPCS: 70450; 70553; 71045; 73130; 80053; 80307; 81001; 82550; 82552; 84484; 84702; 84703; 85025; 93005; 95819; 96361; 96374; 96375; 99285; A9579; G0378; J2270; J2405; J7030; P9612